=== PATIENT | male | born 1980 | race Caucasian/White ===

== ENCOUNTER 2016-10-27 19:10 | Emergency (ER) | payer OTHER | END 2016-10-27 21:01 | disposition home or self-care (01) | LOC: ER 19:10 | DX: N20.1 Calculus of ureter (principal); F17.210 Nicotine dependence, cigarettes, uncomplicated; Z90.49 Acquired absence of other specified parts of digestive tract; Z88.0 Allergy status to penicillin; Z87.442 Personal history of urinary calculi | CPT/HCPCS: 36415 ==

== ENCOUNTER 2016-11-26 02:49 | Emergency (ER) | payer OTHER | END 2016-11-26 03:50 | disposition home or self-care (01) | LOC: ER 02:49 | DX: R20.2 Paresthesia of skin (principal); F17.210 Nicotine dependence, cigarettes, uncomplicated; Z90.49 Acquired absence of other specified parts of digestive tract; Z88.0 Allergy status to penicillin | CPT/HCPCS: 36415 ==